=== PATIENT | male | born 1970 | race Caucasian/White ===

== ENCOUNTER 2018-12-14 21:38 | Emergency (ER) | payer MEDICAID, OTHER ==
[~2018-12-14] VITALS: Ht 167.6 cm; Wt 85.1 kg
[~2018-12-14 21:38] MED LIST: CIPR500T4 PO; LISI5TAB; METF-849 PO; [UNRECOGNIZED DRUG - REMARK]; glipizide
[2018-12-14 22:08] VITALS: Ht 167.6 cm; Wt 85.1 kg
--- NOTE | 2018-12-14 22:59 | ERD ---
ER Documentation Chief Complaint Chief Complaint R foot pain; stepped on a nail; no open wound; has diabetes HPI Patient is a 48-year-old male, past medical history of DM type II, presents to the ER for concerns of right foot pain after stepping on a nail at work earlier today. Patient states he works in construction. He states he stepped on a wood which had a nail on it. Patient was wearing shoes. Patient states he cleaned the wound. He does not feel that any aspect of the nail or remaining in his foot. Patient denies any fevers or chills. Last tetanus shot 2 years ago. Patient has no nausea, vomiting, body aches or loss of consciousness. ROS All systems reviewed and are negative except as per history of present illness. Medications Home Meds Active Scripts Ciprofloxacin Hcl* (Ciprofloxacin Hcl*) 500 Mg Tablet, 500 MG PO BID for 7 Days, TAB Prov:SRIKANTH SALVADOR PA-C 12/14/18 Reported Medications [glipizide] No Conflict Check 10/18/12 [Htn Med Unk. Name] No Conflict Check 01/02/12 Lisinopril* (Prinivil*) 5 Mg Tablet, DAILY 12/15/11 Metformin* (Glucophage*) 500 Mg Tab, PO BID 12/15/11 Allergies Allergies: Coded Allergies: Penicillins (Verified Allergy, Unknown, 12/14/18) tetracycline (Verified Allergy, Unknown, rash, 12/14/18) PMhx/Soc Medical and Surgical Hx: pt denies Surgical Hx History of Surgery: Yes Anesthesia Reaction: No Hx Cardiac Disorders: Yes (HTN) Hx Alcohol Use: No Hx Substance Use: No Hx Tobacco Use: No Smoking Status: Never smoker FmHx Family History: No diabetes Physical Exam Vitals Vital Signs Date Temp Pulse Resp B/P (MAP) Pulse Ox O2 O2 Flow FiO2 Time Delivery Rate 12/14/18 97.4 81 18 142/82 98 22:08 (102) Physical Exam GENERAL: Well-developed, well-nourished male. Appears in no acute distress. HEAD: Normocephalic, atraumatic. EYES: Pupils are equally reactive bilaterally. EOMs grossly intact. No conjunctival erythema. NECK: Supple. No meningismus. Normal range of motion of the neck. LUNG: Clear to auscultation bilaterally. No rhonchi, wheezing, rales or coarse breath sounds. HEART: Regular rate and rhythm. No murmurs, rubs or gallops. EXTREMITIES: Equal pulses bilaterally. No peripheral clubbing, cyanosis or edema. No unilateral leg swelling. NEUROLOGIC: Alert and oriented. Moving all four extremities without any difficulty. Normal speech. Steady gait. SKIN: R foot: No obvious deformity. Pinpoint puncture wound noted to the heel of the foot. No active bleeding, surrounding erythema, swelling or discharge. Normal pulses. Procedures/MDM MEDICAL DECISION MAKING: This is a 48-year-old diabetic male who presents the ER for concerns of a puncture wound to right foot after stepping on a nail earlier today. Vital signs were reviewed. Patient was afebrile. Patient's tetanus is up-to-date. Patient will be treated with ciprofloxacin to prevent infection. Low suspicion for deep space infection, cellulitis, that started ankle dislocation, tibia fracture, fibula fracture, ankle fracture, tarsal bone fracture, metatarsal fracture, phalangeal fracture, stress fracture, lisfranc injury, gout, septic joint, reactive arthritis, psoriatic arthritis, DVT, compartment syndrome, plantar fasciitis. PRESCRIPTIONS: Ciprofloxacin DISCHARGE: At this time, patient is stable for discharge and outpatient management. RICE therapy and ROM exercises were advised to avoid stiffness. I have instructed the patient to follow-up with his/her primary care physician in 1-2 days. I have discussed with the patient the possibility of needing to see an orthopedic sp ecialist for further workup and imaging if the pain persists. I have instructed the patient to promptly return to the ER for any new or worsening symptoms including increased pain, swelling, redness, warmth or fever. The patient and/or family expressed understanding of and agreement with this plan. All questions were answered. Home care instructions were provided. Disclaimer: Inadvertent spelling and grammatical errors are likely due to EHR/dictation software use and do not reflect on the overall quality of patient care. Also, please note that the electronic time recorded on this note does not necessarily reflect the actual time of the patient encounter. Departure Diagnosis: Primary Impression: Puncture wound Additional Impression: DM type 2 (diabetes mellitus, type 2) Diabetes mellitus local [employer] insulin use: without local company intermodal truck driver use Diabetes mellitus complication status: with other specified complication Qualified Codes: E11.69 - Type 2 diabetes mellitus with other specified complication Condition: Fair Patient Instructions: Puncture Wound, Foot Referrals: COMM[facility]ITY CL[facility] YOU HAVE RECEIVED A MEDICAL SCREENING EXAM AND THE RESULTS INDICATE THAT YOU DO NOT HAVE A CONDITION THAT REQUIRES URGENT TREATMENT IN THE EMERGENCY DEPARTMENT. FURTHER EVALUATION AND TREATMENT OF YOUR CONDITION CAN WAIT UNTIL YOU ARE SEEN IN YOUR DOCTORS OFFICE WITHIN THE NEXT 1-2 DAYS. IT IS YOUR RESPONSIBILITY TO MAKE AN APPOINTMENT FOR FOLOW-UP CARE. IF YOU HAVE A PRIMARY DOCTOR --you should call your primary doctor and schedule an appointment IF YOU DO NOT HAVE A PRIMARY DOCTOR YOU CAN CALL OUR PHYSICIAN REFERRAL HOTLINE AT IF YOU CAN NOT AFFORD TO SEE A PHYSICIAN YOU CAN CHOSE FROM THE FOLLOWING [facility] [address] [facility] [address] [facility]. [facility] [address] [facility] [facility] [address] [facility] [facility] [address] [facility]. [facility] [address] [facility]. [facility] YOU HAVE RECEIVED A MEDICAL SCREENING EXAM AND THE RESULTS INDICATE THAT YOU DO NOT HAVE A CONDITION THAT REQUIRES URGENT TREATMENT IN THE EMERGENCY DEPARTMENT. FURTHER EVALUATION AND TREATMENT OF YOUR CONDITION CAN WAIT UNTIL YOU ARE SEEN IN YOUR DOCTORS OFFICE WITHIN THE NEXT 1-2 DAYS. IT IS YOUR RESPONSIBILITY TO MAKE AN APPOINTMENT FOR FOLOW-UP CARE. IF YOU HAVE A PRIMARY DOCTOR --you should call your primary doctor and schedule and appointment IF YOU DO NOT HAVE A PRIMARY DOCTOR YOU CAN CALL OUR PHYSICIAN REFERRAL HOTLINE AT . IF YOU CAN NOT AFFORD TO SEE A PHYSICIAN YOU CAN CHOSE FROM THE FOLLOWING [facility] INSTITUTIONS: [facility] [address] [place] [address] [facility] [address] [place] [address] [facility] [address] [place] [address] Additional Instructions: Call your primary care doctor TOMORROW for an appointment during the next 1-2 days.See the doctor sooner or return here if your condition worsens before your appointment time. SRIKANTH SALVADOR PA-C Dec 14, 2018 22:59
[2018-12-14 23:23] VITALS: BP 162/80; PULSE 71; RESP 15
== END 2018-12-14 23:25 | disposition home or self-care (01) ==
LOC: FTE 21:38
DX: S91.331A Puncture wound without foreign body, right foot, initial encounter (principal); I10 Essential (primary) hypertension; E11.69 Type 2 diabetes mellitus with other specified complication; W45.0XXA Nail entering through skin, initial encounter; Y92.89 Other specified places as the place of occurrence of the external cause; Z79.84 Long term (current) use of oral hypoglycemic drugs
CPT/HCPCS: 99283

== ENCOUNTER 2019-01-22 13:22 | Emergency (ER) | payer OTHER ==
[~2019-01-22] VITALS: Wt 89.0 kg
[~2019-01-22 13:22] MED LIST changes: +ASPI-535 PO; +ATEN50TA PO; +CEPH-443 PO; +GLIP5TAB13 PO; +HYDR-4011 PO; +IBUP-1542 PO; +METF100010 PO; +NAPR-985 PO
[2019-01-22 13:27] VITALS: BP 149/86; PULSE 86; RESP 18
== END 2019-01-22 13:38 | disposition home or self-care (01) ==
LOC: E/R 13:22
DX: Z48.01 Encounter for change or removal of surgical wound dressing (principal); I10 Essential (primary) hypertension; Z79.84 Long term (current) use of oral hypoglycemic drugs
CPT/HCPCS: 99281